=== PATIENT | female | born 1955 | race Asian ===

== ENCOUNTER 2017-05-28 06:50 | Day surgery (SDC) | payer OTHER ==
[~2017-05-28] VITALS: Ht 157.5 cm; Wt 68.2 kg
[~2017-05-28 06:50] MED LIST: ACETAMINOPHEN 325 MG TABLET PO PRN; AMLO-512 PO; DICLOFENAC SODIUM 0.1% 2.5 ML OPHTHALMIC SOLUTION OD SCH; FLUT16H NASAL; MELO-107 PO; METF850T2 PO; PANT40TA25 PO; PSEU60TA21 PO; RINGERS SOLUTION,LACTATED 500 ML IV ONE
[2017-05-28] MEDS ORDERED: RINGERS SOLUTION,LACTATED 500 ML IV ONE (07:07)
[2017-05-28] MEDS ORDERED: CYCLOPENTOLATE HCL 2% 2 ML OPHTHALMIC SOLUTION ONE (07:08)
[2017-05-28] MEDS ORDERED: MOXIFLOXACIN HCL 0.5% 3 ML OPHTHALMIC SOLUTION ONE (07:08)
[2017-05-28] MEDS ORDERED: KETOROLAC TROMETHAMINE 0.5% 5 ML OPHTHALMIC SOLUTION ONE (07:08)
[2017-05-28] MEDS ORDERED: PHENYLEPHRINE HCL 2.5% 2 ML OPHTHALMIC SOLUTION ONE (07:09)
[2017-05-28] MEDS ORDERED: TETRACAINE HCL/PF 0.5% 4 ML OPHTHALMIC SOLUTION ONE (07:09)
[2017-05-28] MEDS: TETRACAINE HCL/PF 0.5% 4 ML OPHTHALMIC SOLUTION OD SCH ×3 (07:33→07:58)
[2017-05-28] MEDS: KETOROLAC TROMETHAMINE 0.5% 5 ML OPHTHALMIC SOLUTION OD SCH ×3 (07:34→07:58)
[2017-05-28] MEDS: PHENYLEPHRINE HCL 2.5% 2 ML OPHTHALMIC SOLUTION OD SCH ×3 (07:34→07:58)
[2017-05-28] MEDS: MOXIFLOXACIN HCL 0.5% 3 ML OPHTHALMIC SOLUTION OD SCH ×3 (07:34→07:58)
[2017-05-28] MEDS: CYCLOPENTOLATE HCL 2% 2 ML OPHTHALMIC SOLUTION OD SCH ×3 (07:34→07:58)
[2017-05-28 07:48] LABS: GLUCOMETER DEV NAME(LOC) SDS 5; GLUCOSE,POINT OF CARE 142 MG/DL (70-110)
[2017-05-28] MEDS ORDERED: FentaNYL CITRATE-PF 100 MCG/2 ML VIAL IVP ONE (12:00)
[2017-05-28] MEDS ORDERED: MIDAZOLAM HCL 2 MG/2 ML VIAL IVP ONE (12:00)
== END 2017-05-28 09:40 | disposition home or self-care (01) ==
LOC: SURGERY 06:50
PROVIDERS: ATTEND Ophthalmology
DX: E11.36 Type 2 diabetes mellitus with diabetic cataract (principal); H25.11 Age-related nuclear cataract, right eye; I10 Essential (primary) hypertension; Z90.89 Acquired absence of other organs; Z98.890 Other specified postprocedural states; Z88.8 Allergy status to other drugs, medicaments and biological substances; Z79.84 Long term (current) use of oral hypoglycemic drugs; Z79.899 Other long term (current) drug therapy
CPT/HCPCS: 66984; 82962; 93005; C1780; J2250; J3010; J7120